=== PATIENT | female | born 1980 | race Caucasian/White ===

== ENCOUNTER 2019-01-22 20:43 | Emergency (ER) | payer OTHER ==
[2019-01-22] MEDS ORDERED: MOTRIN 400 MG ONE (21:11)
[2019-01-22] MEDS ORDERED: MOTRIN 400 MG PO ONE (21:12)
--- NOTE | 2019-01-22 21:31 | ERPHSYRPT ---
- History of Present Illness Time Seen by Provider: 01/22/19 21:10 Source: patient Exam Limitations: no limitations Patient Subjective Stated Complaint: pt states she has been coughing, dizzy, sore throat headache, and chilling at home since yesterday. states daughter had pos flu swab last week Triage Nursing Assessment: pt alert and oriented, answers questions approp. pt ambulatory with steady gait noted. respirations nonlabored with lungs cta. occasional dry cough noted. skin pink warm and dry Physician History: 38 y/o white female presents with one day h/o cough, sore throat and fever. pt was exposed to her daughter's illness and she was influenza A positive. pt denies n/v/d. pt denies abd pain. Timing/Duration: day(s) (1) Severity: mild Associated Symptoms: cough, fever, No nausea, No vomiting, No abdominal pain, No shortness of breath Allergies/Adverse Reactions: No Known Drug Allergies Allergy (Verified 01/22/19 21:07) Hx Tetanus, Diphtheria Vaccination/Date Given: No Hx Influenza Vaccination/Date Given: No Hx Pneumococcal Vaccination/Date Given: No Immunizations Up to Date: No - Review of Systems Constitutional: Fever Eyes: No Symptoms Ears, Nose, & Throat: No Symptoms Respiratory: Cough Cardiac: No Symptoms Abdominal/Gastrointestinal: No Symptoms Genitourinary Symptoms: No Symptoms Musculoskeletal: No Symptoms Skin: No Symptoms Neurological: No Symptoms Psychological: No Symptoms Endocrine: No Symptoms Hematologic/Lymphatic: No Symptoms Immunological/Allergic: No Symptoms All Other Systems: Reviewed and Negative - Past Medical History Pertinent Past Medical History: No Neurological History: No Pertinent History ENT History: No Pertinent History Cardiac History: No Pertinent History Respiratory History: No Pertinent History Endocrine Medical History: No Pertinent History Musculoskeletal History: No Pertinent History GI Medical History: No Pertinent History History: No Pertinent History Psycho-Social History: No Pertinent History Female Reproductive Disorders: No Pertinent History - Past Surgical History Past Surgical History: No Neuro Surgical History: No Pertinent History Cardiac: No Pertinent History Respiratory: No Pertinent History Gastrointestinal: No Pertinent History Genitourinary: No Pertinent History Musculoskeletal: No Pertinent History Female Surgical History: No Pertinent History - Social History Smoking Status: Never smoker Exposure to second hand smoke: No Drug Use: none Patient Lives Alone: No - Female History Hx Last Menstrual Period: today Hx Now: No - Nursing Vital Signs Nursing Vital Signs: Initial Vital Signs Temperature 100.3 F 01/22/19 20:58 Pulse Rate 101 H 01/22/19 20:58 Respiratory Rate 18 01/22/19 20:58 Blood Pressure 144/90 01/22/19 20:58 O2 Sat by Pulse Oximetry 99 01/22/19 20:58 Pain Scale Pain Intensity 6 - Physical Exam General Appearance: no apparent distress, alert, anxiety Eye Exam: PERRL/EOMI, photophobia Ears, Nose, Throat Exam: moist mucous membranes, pharyngeal erythema (mild) Neck Exam: normal inspection, non-tender, supple, full range of motion Respiratory Exam: normal breath sounds, lungs clear, airway intact, No chest tenderness, No respiratory distress Cardiovascular Exam: regular rate/rhythm, normal heart sounds, normal peripheral pulses Gastrointestinal/Abdomen Exam: soft, normal bowel sounds, No tenderness Pelvic Exam: not done Rectal Exam: not done Back Exam: normal inspection, normal range of motion, No CVA tenderness, No vertebral tenderness Extremity Exam: normal inspection, normal range of motion, pelvis stable Neurologic Exam: alert, oriented x 3, cooperative, undraped artist model II-XII nml as tested Skin Exam: normal color, warm, dry Lymphatic Exam: No adenopathy SpO2 Interpretation: normal SpO2: 99 O2 Delivery: Room Air - Course Nursing assessment & vital signs reviewed: Yes Ordered Tests: Medication Summary Discontinued Medications Generic Name Dose Route Start Last Admin Trade Name Dankq PRN Reason Stop Dose Admin Hydrocodone Bitart/Acetaminophen 10 ml 01/22/19 22:04 Hydrocodone-Acetamin 2.5-108/5 Ml Solution PO 01/22/19 22:05 STAT STA Amoxicillin 500 mg 01/22/19 22:04 Amoxil 500 Mg PO 01/22/19 22:05 STAT ONE Ibuprofen 400 mg 01/22/19 21:12 01/22/19 21:23 Motrin 400 Mg PO 01/22/19 21:13 400 mg STAT ONE Administration Ibuprofen Confirm 01/22/19 21:11 Motrin 400 Mg Administered 01/22/19 21:12 Dose 400 mg .ROUTE .STK-MED ONE Lab/Rad Data: Laboratory Results 01/22/19 Range/Units Unknown Influenza Type A Ag NEGATIVE (NEGATIVE) Influenza Type B Ag NEGATIVE (NEGATIVE) RSV (PCR) NEGATIVE (Negative) - Progress Progress: unchanged Counseled pt/family regarding: lab results, diagnosis, need for follow-up - Departure Time of Disposition: 22:06 Departure Disposition: Home Clinical Impression: Fever, Pharyngitis Condition: Stable Critical Care Time: No Referrals: MARELY AQUINO [Primary Care Provider] - Additional Instructions: drink plenty of fluids. add ibuprofen or alleve for pain and fever. follow up with primary doctor for persistent symptoms Prescriptions: Amoxicillin 500 mg Cap [Amoxil 500 mg] 500 mg PO TID #21 capsule Hydrocodone Bit/Acetaminophen [Hydrocodone-Acetaminophen Soln] 10 ml PO Q6H # 120 ml
[2019-01-22 22:03] LABS: INFLUENZA A NEGATIVE (NEGATIVE); INFLUENZA B NEGATIVE (NEGATIVE); RESPIRATORY SYNCTIAL VIRUS NEGATIVE (Negative)
[2019-01-22] MEDS ORDERED: HYDROCODONE-ACETAMIN 2.5-108/5 ML SOLUTION PO STA (22:04)
[2019-01-22] MEDS ORDERED: AMOXIL 500 MG PO ONE (22:04)
[2019-01-22] MEDS ORDERED: AMOXIL 500 MG ONE (22:07)
[2019-01-22] MEDS ORDERED: HYDROCODONE-ACETAMIN 2.5-108/5 ML SOLUTION ONE (22:07)
[2019-01-22 22:39] VITALS: BP 122/78; PULSE 104; O2SAT 97
== END 2019-01-22 22:35 | disposition home or self-care (01) ==
LOC: ED 20:43
DX: R50.9 Fever, unspecified (principal); Z20.89 Contact with and (suspected) exposure to other communicable diseases
CPT/HCPCS: 87631; 99283; A9270-GY

== ENCOUNTER 2021-07-10 20:22 | Emergency (ER) | payer OTHER ==
[2021-07-10 21:10] VITALS: O2SAT 96
--- NOTE | 2021-07-10 21:25 | ERPHSYRPT ---
- History of Present Illness Time Seen by Provider: 07/10/21 21:20 Source: patient, family Exam Limitations: no limitations Patient Subjective Stated Complaint: pt states she has been having symptoms for 1 week and tested positive for covid on monday. states she has been increasingly tired and feels bad and has body aches and pains. denies shortness of breath. Triage Nursing Assessment: pt alert and oriented, answers questions approp. pt ambulatory with steady gait noted. skin warm and dry. occasional cough noted. lungs cta. Physician History: pt is known Covid for 5 days and as precaution got Z pack and dosepak which are about done. She just feels tired. her pulse Ox is 96% room air, chest is clear. Abd nontender. No N/V. Fundi benign. Throat clear. legs nontender neg homans, and no edema , or swelling or erythema. Neuro is normal on exam. Discussed potential risks such as DVT and further testing , and pt prefers just CXR and to f/u DrKerline without further testing in ER at this time if lungs are OK by CXR. she has the capacity to make this choice. Timing/Duration: day(s) Cough Quality/Degree: dry cough Possible Cause: no prior episodes Modifying Factors: Improves With: nothing, coughing Associated Symptoms: cough, headache, muscle aches, sore throat Allergies/Adverse Reactions: No Known Drug Allergies Allergy (Verified 07/10/21 21:10) Home Medications: Aspirin EC 81 mg [Ecotrin 81 mg] 81 mg PO DAILY 07/10/21 [History] Azithromycin 250 mg [Zithromax 250 MG TABLET] 250 mg PO DAILY 07/10/21 [History] Benzonatate 200 mg PO Q8H PRN PRN 07/10/21 [History] Methylprednisolone 4 mg [Medrol 4 mg] 4 mg PO UD 07/10/21 [History] Hx Tetanus, Diphtheria Vaccination/Date Given: No Hx Influenza Vaccination/Date Given: No Hx Pneumococcal Vaccination/Date Given: No Immunizations Up to Date: No Travel Risk - International Travel Have you traveled outside of the country in past 3 weeks: No - Coronavirus Screening Are you exhibiting any of the following symptoms?: Yes Symptoms: Fever, Cough: New Onset, Headaches/Body Aches/Fatigue Close contact with a COVID-19 positive Pt in past 14-21 Days: Yes - Vaccine Status Have you recieved a Covid-19 vaccination: No - Review of Systems Constitutional: No Fever, No Chills Eyes: No Symptoms Ears, Nose, & Throat: No Symptoms Respiratory: Cough, No Dyspnea Cardiac: No Chest Pain, No Edema, No Syncope Abdominal/Gastrointestinal: No Abdominal Pain, No Nausea, No Vomiting, No Diarrhea Genitourinary Symptoms: No Dysuria Musculoskeletal: Myalgias, No Back Pain, No Neck Pain Skin: No Rash Neurological: Headache, No Dizziness, No Focal Weakness, No Sensory Changes Psychological: No Symptoms Endocrine: No Symptoms Hematologic/Lymphatic: No Symptoms Immunological/Allergic: No Symptoms All Other Systems: Reviewed and Negative - Past Medical History Pertinent Past Medical History: Yes Neurological History: No Pertinent History ENT History: No Pertinent History Cardiac History: No Pertinent History Respiratory History: Asthma Endocrine Medical History: No Pertinent History Musculoskeletal History: No Pertinent History GI Medical History: No Pertinent History History: No Pertinent History Psycho-Social History: No Pertinent History Female Reproductive Disorders: No Pertinent History - Past Surgical History Past Surgical History: No Neuro Surgical History: No Pertinent History Cardiac: No Pertinent History Respiratory: No Pertinent History Gastrointestinal: No Pertinent History Genitourinary: No Pertinent History Musculoskeletal: No Pertinent History Female Surgical History: No Pertinent History - Social History Smoking Status: Never smoker Exposure to second hand smoke: No Drug Use: none Patient Lives Alone: No - Female History Hx Last Menstrual Period: 06/25/21 Hx Now: No - Nursing Vital Signs Nursing Vital Signs: Initial Vital Signs Temperature 98.5 F 07/10/21 20:53 Pulse Rate 108 H 07/10/21 20:53 Respiratory Rate 16 07/10/21 20:53 Blood Pressure 143/91 07/10/21 20:53 O2 Sat by Pulse Oximetry 96 07/10/21 20:53 Pain Scale Pain Intensity 3 - Physical Exam General Appearance: no apparent distress, alert Eye Exam: PERRL/EOMI, eyes nml inspection Ears, Nose, Throat Exam: normal ENT inspection, TMs normal, pharynx normal, moist mucous membranes Neck Exam: normal inspection, non-tender, supple, full range of motion Respiratory Exam: normal breath sounds, lungs clear, No respiratory distress Cardiovascular Exam: regular rate/rhythm, normal heart sounds Gastrointestinal/Abdomen Exam: soft, No tenderness Pelvic Exam: deferred Rectal Exam: deferred Back Exam: normal inspection, No CVA tenderness, No vertebral tenderness Extremity Exam: normal inspection, normal range of motion Neurologic Exam: alert, oriented x 3, cooperative, normal mood/affect, sensation nml, No motor deficits Skin Exam: normal color, warm, dry, No rash Lymphatic Exam: No adenopathy SpO2 Interpretation: normal SpO2: 96 O2 Delivery: Room Air - Course Nursing assessment & vital signs reviewed: Yes - Radiology Exams Chest X-ray Interpretation: Reviewed by me, Infiltrates (scattered mild infiltrates consistent wtih Covid) Ordered Tests: Active Orders 24 hr Category Date Time Status CHEST 2 VIEWS (PA AND LAT) Stat Exams 07/10/21 21:28 Taken CBC W DIFF Stat Lab 07/10/21 21:58 Received CMP Stat Lab 07/10/21 21:58 Completed HCG QUALITATIVE,SERUM Stat Lab 07/10/21 21:58 Received Lactic Acid Stat Lab 07/10/21 21:48 Completed Manual Differential NC Stat Lab 07/10/21 21:58 Completed Lab/Rad Data: Laboratory Result Diagrams 07/10/21 21:58 07/10/21 21:58 Laboratory Results 07/10/21 07/10/21 07/10/21 Range/Units 21:58 21:58 21:58 WBC 5.7 (4.0-10.5) K/mm3 RBC 5.16 (4.1-5.4) M/mm3 Hgb 14.2 (12.0-16.0) gm/dl Hct 44.7 (35-47) % MCV 86.6 (78-100) fl MCH 27.5 (26-32) pg MCHC 31.8 L (32-36) g/dl RDW 16.3 H (11.5-14.0) % Plt Count 137 L (150-450) K/mm3 MPV 11.2 H (7.5-11.0) fl Sodium 136 L (137-145) mmol/L Potassium 3.4 L (3.5-5.1) mmol/L Chloride 97 L (98-107) mmol/L Carbon Dioxide 29 (22-30) mmol/L Anion Gap 13.5 (5-15) MEQ/L BUN 14 (7-17) mg/dL Creatinine 0.80 (0.52-1.04) mg/dL Estimated GFR > 60.0 ML/MIN Glucose 116 H (74-106) mg/dL Lactic Acid (0.4-2.0) Calcium 9.2 (8.4-10.2) mg/dL Total Bilirubin 0.60 (0.2-1.3) mg/dL AST 39 H (14-36) U/L ALT 57 H (0-35) U/L Alkaline Phosphatase 48 (38-126) U/L Serum Total Protein 7.8 (6.3-8.2) g/dL Albumin 4.3 (3.5-5.0) g/dL Serum , Qual NEGATIVE (Negative) 07/10/21 Range/Units 21:48 WBC (4.0-10.5) K/mm3 RBC (4.1-5.4) M/mm3 Hgb (12.0-16.0) gm/dl Hct (35-47) % MCV (78-100) fl MCH (26-32) pg MCHC (32-36) g/dl RDW (11.5-14.0) % Plt Count (150-450) K/mm3 MPV (7.5-11.0) fl Sodium (137-145) mmol/L Potassium (3.5-5.1) mmol/L Chloride (98-107) mmol/L Carbon Dioxide (22-30) mmol/L Anion Gap (5-15) MEQ/L BUN (7-17) mg/dL Creatinine (0.52-1.04) mg/dL Estimated GFR ML/MIN Glucose (74-106) mg/dL Lactic Acid 0.9 (0.4-2.0) Calcium (8.4-10.2) mg/dL Total Bilirubin (0.2-1.3) mg/dL AST (14-36) U/L ALT (0-35) U/L Alkaline Phosphatase (38-126) U/L Serum Total Protein (6.3-8.2) g/dL Albumin (3.5-5.0) g/dL Serum , Qual (Negative) - Progress Progress: improved, re-examined Air Movement: good Progress Note: 07/10/21 22:50 discussed with pt the potential complications from Covid including blood cots and that additional pathology could still be evolving undetected. She prefers outpt f/u to further w/u in ER or admission at this time after discussion of risk and benefit and will try decadron and outpt management with f/u PMD early this week and has the capacity to make this choice. She will return meantime if any shortness of breath or other concerns. Blood Culture(s) Obtained: No Antibiotics given: No Counseled pt/family regarding: lab results, diagnosis, need for follow-up, rad results - Departure Departure Disposition: Home Clinical Impression: covid with infiltrates, Elevated liver enzymes Condition: Good Critical Care Time: No Referrals: MARELY AQUINO [Primary Care Provider] - Instructions: Coronavirus Disease 2019 (COVID-19) (DC) Additional Instructions: followup with your early this week, return meantime if short of breath or any other concerns. your liver tests are slightly elevated and should be retested to confirm resolving after covid, or meantime if other symptoms occur. your chest x-ray could be rechecked if you become short of breath and other testing for blood clots might be indicated if your have leg swelling, redness , or are short of breath. Prescriptions: Dexamethasone 4 mg [Decadron 4 MG] 6 mg PO DAILY #10 tablet
[2021-07-10 22:15] LABS: ALBUMIN 4.3 g/dL (3.5-5.0); ALKALINE PHOSPHATASE 48 U/L (38-126); ANION GAP 13.5 MEQ/L (5-15); BLOOD UREA NITROGEN 14 mg/dL (7-17); CHLORIDE 97 mmol/L (98-107); Calcium 9.2 mg/dL (8.4-10.2); Carbon Dioxide 29 mmol/L (22-30); EST GLOMERULAR FILTRATION RATE > 60.0 ML/MIN; Glucose 116 mg/dL (74-106); Potassium 3.4 mmol/L (3.5-5.1); SGOT/AST 39 U/L (14-36); SGPT/ALT 57 U/L (0-35); SODIUM 136 mmol/L (137-145); Total Protein 7.8 g/dL (6.3-8.2)
[2021-07-10 22:24] LABS: Hematocrit 44.7 % (35-47); Hemoglobin 14.2 gm/dl (12.0-16.0); Mean Cell Volume 86.6 fl (78-100); Mean Corpuscular Hemoglobin 27.5 pg (26-32); Mean Corpuscular Hgb Concent. 31.8 g/dl (32-36); Mean Platelet Volume 11.2 fl (7.5-11.0); Platelet Count 137 K/mm3 (150-450); Red Blood Count 5.16 M/mm3 (4.1-5.4); Red Cell Distribution Width 16.3 % (11.5-14.0); White Blood Count 5.7 K/mm3 (4.0-10.5)
[2021-07-10 23:14] LABS: BAND 10 % (0.0-2.0); Lymphocytes 10 % (24-44); Monocyte 5 % (0.0-12.0); Neutrophils 75 % (36.0-66.0); Total Cells Counted 100
[2021-07-10 23:15] LABS: Platelet Estimate NORMAL (NORMAL)
[2021-07-10 23:25] VITALS: BP 124/91; PULSE 90
--- NOTE | 2021-07-11 07:02 | XRAY ---
Indication: Cough. Suspect Covid 19. Comparison: August 22, 2018. PA/lateral chest demonstrates new subtle patchy groundglass airspace disease bilaterally without consolidation/large effusion. Remaining heart and bony thorax unremarkable.
== END 2021-07-10 23:24 | disposition home or self-care (01) ==
LOC: ED 20:22
DX: R74.8 Abnormal levels of other serum enzymes (principal)
CPT/HCPCS: 36415; 71046; 80053; 81025; 83605; 85025; 99284

== ENCOUNTER 2024-05-29 21:19 | Emergency (ER) | payer OTHER ==
[2024-05-29] MEDS ORDERED: Sodium Chloride 0.9% 1000 ML 1,000 ML ONE (21:33)
[2024-05-29 21:37] VITALS: RESP 18; TEMP 98.2; O2SAT 98
--- NOTE | 2024-05-29 21:37 | ERPHSYRPT ---
- History of Present Illness Time Seen by Provider: 05/29/24 21:30 Historian: patient Exam Limitations: no limitations Physician History: 44-year-old female presents to the emergency department for evaluation of epigastric pain. Pain started today. Patient is mildly nauseous. No vomiting no diarrhea no rash. Symptoms are mild to moderate in intensity. No specific w orsening or improving factors. Patient reports she still has her gallbladder. Patient is otherwise healthy. She voices no other complaints or concerns at this time. Portions of this note were created with voice recognition technology. There may be grammatical, spelling, punctuation or sound alike errors Timing/Duration: today Activities at Onset: none Quality: aching Abdominal Pain Onset Location: epigastric Pain Radiation: no radiation Severity of Pain-Max: moderate Severity of Pain-Current: mild Associated Symptoms: denies symptoms Previous symptoms: no prior history Allergies/Adverse Reactions: No Known Drug Allergies Allergy (Verified 05/29/24 21:25) Home Medications: Aspirin EC 81 mg [Ecotrin 81 mg] 81 mg PO DAILY 07/10/21 [History] Azithromycin 250 mg [Zithromax 250 MG TABLET] 250 mg PO DAILY 07/10/21 [History] Benzonatate 200 mg PO Q8H PRN PRN 07/10/21 [History] Methylprednisolone 4 mg [Medrol 4 mg] 4 mg PO UD 07/10/21 [History] Hx Tetanus, Diphtheria Vaccination/Date Given: No Hx Influenza Vaccination/Date Given: No Hx Pneumococcal Vaccination/Date Given: No - Review of Systems Constitutional: No Symptoms, No Fever, No Chills Eyes: No Symptoms Ears, Nose, & Throat: No Symptoms Respiratory: No Symptoms, No Cough, No Dyspnea Cardiac: No Symptoms, No Chest Pain, No Edema, No Syncope Abdominal/Gastrointestinal: No Symptoms, No Abdominal Pain, No Nausea, No Vomiting, No Diarrhea Genitourinary Symptoms: No Symptoms, No Dysuria Musculoskeletal: No Symptoms, No Back Pain, No Neck Pain Skin: No Symptoms, No Rash Neurological: No Symptoms, No Dizziness, No Focal Weakness, No Sensory Changes Psychological: No Symptoms Endocrine: No Symptoms Hematologic/Lymphatic: No Symptoms Immunological/Allergic: No Symptoms All Other Systems: Reviewed and Negative - Past Medical History Pertinent Past Medical History: Yes Neurological History: No Pertinent History ENT History: No Pertinent History Cardiac History: No Pertinent History Respiratory History: Asthma Endocrine Medical History: No Pertinent History Musculoskeletal History: No Pertinent History GI Medical History: No Pertinent History History: No Pertinent History Psycho-Social History: No Pertinent History Female Reproductive Disorders: No Pertinent History - Past Surgical History Past Surgical History: No Neuro Surgical History: No Pertinent History Cardiac: No Pertinent History Respiratory: No Pertinent History Gastrointestinal: No Pertinent History Genitourinary: No Pertinent History Musculoskeletal: No Pertinent History Female Surgical History: No Pertinent History - Social History Smoking Status: Never smoker Exposure to second hand smoke: No Drug Use: none Patient Lives Alone: No - Nursing Vital Signs Nursing Vital Signs: Initial Vital Signs Blood Pressure 171/93 05/29/24 21:28 O2 Sat by Pulse Oximetry 98 05/29/24 21:28 Pain Scale Pain Intensity 8 - Physical Exam General Appearance: no apparent distress, alert Eye Exam: PERRL/EOMI, eyes nml inspection Ears, Nose, Throat Exam: normal ENT inspection, pharynx normal, moist mucous membranes Neck Exam: normal inspection, non-tender, supple, full range of motion Respiratory Exam: normal breath sounds, lungs clear, airway intact, No respiratory distress Cardiovascular Exam: regular rate/rhythm, normal heart sounds Gastrointestinal/Abdomen Exam: soft, No tenderness, No mass Back Exam: normal inspection, normal range of motion, No CVA tenderness, No vertebral tenderness Extremity Exam: normal inspection, normal range of motion, pelvis stable Neurologic Exam: alert, oriented x 3, cooperative, normal mood/affect, nml cerebellar function, sensation nml, No motor deficits Skin Exam: normal color, warm, dry Lymphatic Exam: No adenopathy SpO2 Interpretation: normal SpO2: 98 O2 Delivery: Room Air - Course Nursing assessment & vital signs reviewed: Yes - CT Exams Abdomen/Pelvis CT Interpretation: Tele-radiologist Report (No comps. Stomach distended with food. Abnormal distended gallbladder with wall thickening but no gallstones. Rule out a calculus cholecystitis. Normal appendectomy 4 cm right ovary cyst without free fluid) Ordered Tests: Active Orders 24 hr Category Date Time Status IV Insertion STAT Care 05/29/24 21:29 Active ABDOMEN AND PELVIS W/0 CONTRAS [CT] Stat Exams 05/29/24 21:30 Taken CBC W DIFF Stat Lab 05/29/24 21:30 Completed CMP Stat Lab 05/29/24 21:30 Completed CULTURE,URINE Stat Lab 05/29/24 21:31 Received LIPASE Stat Lab 05/29/24 21:30 Completed TROPONIN Q4H Lab 05/29/24 21:30 Completed TROPONIN Q4H Lab 05/30/24 01:30 Ordered TROPONIN Q4H Lab 05/30/24 05:30 Ordered UA W/RFX UR CULTURE Stat Lab 05/29/24 21:31 Completed Medication Summary Discontinued Medications Generic Name Dose Route Start Last Admin Trade Name Manish PRN Reason Stop Dose Admin Sodium Chloride 1,000 mls @ 999 mls/hr 05/29/24 21:29 05/29/24 21:38 Sodium Chloride 0.9% 1000 Ml IV 05/29/24 22:29 999 mls/hr .Q1H1M STA Administration Sodium Chloride Confirm 05/29/24 21:33 Sodium Chloride 0.9% 1000 Ml Administered 05/29/24 21:34 Dose 1,000 mls @ ud .ROUTE .STK-MED ONE Ceftriaxone Sodium 1 gm in 100 mls @ 200 mls/hr 05/29/24 22:27 05/29/24 22:37 Rocephin 1 Gm / 100 Ml Nacl IV 05/29/24 22:56 200 mls/hr STAT ONE 200 mls/hr Administration Ceftriaxone Sodium Confirm 05/29/24 22:29 Rocephin 1 Gm / 100 Ml Nacl Administered 05/29/24 22:30 Dose 1 gm in 100 mls @ ud IV .STK-MED ONE Lab/Rad Data: Laboratory Result Diagrams 05/29/24 21:30 05/29/24 21:30 Laboratory Results 05/29/24 05/29/24 05/29/24 Range/Units 21:31 21:30 21:30 WBC (3.98-10.04) x10^3/uL RBC (3.93-5.22) x10^6/uL Hgb (11.2-15.7) g/dL Hct (34.1-44.9) % MCV (79.4-94.8) fL MCH (25.6-32.2) pg MCHC (32.2-35.5) g/dL RDW (11.7-14.4) % Plt Count (182-369) x10^3/uL MPV (9.4-12.3) fL Gran % (34.0-71.1) % Immature Gran % (Auto) (0.001-0.429) % Nucleat RBC Rel Count (0.00-0.2) % Eos # (Auto) (0.04-0.36) x10^3/uL Immature Gran # (Auto) (0.001-0.031) x10^3u/L Absolute Lymphs (auto) (1.18-3.74) x10^3/uL Absolute Monos (auto) (0.24-0.86) x10^3/uL Absolute Nucleated RBC (0.00-0.012) x10^3u/L Lymphocytes % (19.3-51.7) % Monocytes % (4.7-12.5) % Eosinophils % (0.7-5.8) % Basophils % (0.1-1.2) % Absolute Granulocytes (1.56-6.13) x10^3/uL Basophils # (0.01-0.08) x10^3/uL Sodium 137 (135-145) mmol/L Potassium 3.8 (3.5-5.1) mmol/L Chloride 101 (98-107) mmol/L Carbon Dioxide 29 (22-30) mmol/L Anion Gap 10.7 (5-15) MEQ/L BUN 12 (7-17) mg/dL Creatinine 0.87 (0.52-1.04) mg/dL Estimated GFR 84.7 ML/MIN Glucose 107 H (74-106) mg/dL Calcium 9.7 (8.4-10.2) mg/dL Total Bilirubin 0.70 (0.2-1.3) mg/dL AST 23 (14-36) U/L ALT 21 (0-35) U/L Alkaline Phosphatase 59 (38-126) U/L Troponin I < 0.012 (0.000-0.033) ng/mL Serum Total Protein 7.0 (6.3-8.2) g/dL Albumin 4.0 (3.5-5.0) g/dL Lipase 172 (23-300) U/L Urine Color Red A (Yellow) Urine Appearance Turbid A (Clear) Urine pH 5.0 (4.6-8.0) Ur Specific [place] 1.025 (1.005-1.030) Urine Protein 100 A (Negative) Urine Glucose (UA) Negative (Negative) mg/dL Urine Ketones Negative (Negative) Urine Blood Large A (Negative) Urine Nitrite Positive A (Negative) Urine Bilirubin Small A (Negative) Urine Urobilinogen 0.2 (0.2) mg/dL Ur Leukocyte Esterase Moderate A (Negative) U Hyaline Cast (Auto) NONE SEEN (0-2) /LPF Urine Microscopic RBC >100 A (0-5) /HPF Urine Microscopic WBC 11-20 A (0-5) /HPF Ur Epithelial Cells None Seen (None Seen) /HPF Urine Bacteria None Seen (None Seen) /HPF Urine Culture Reflexed YES (NO) 05/29/24 Range/Units 21:30 WBC 8.7 (3.98-10.04) x10^3/uL RBC 4.22 (3.93-5.22) x10^6/uL Hgb 10.3 L (11.2-15.7) g/dL Hct 33.0 L (34.1-44.9) % MCV 78.2 L (79.4-94.8) fL MCH 24.4 L (25.6-32.2) pg MCHC 31.2 L (32.2-35.5) g/dL RDW 15.2 H (11.7-14.4) % Plt Count 241 (182-369) x10^3/uL MPV 11.2 (9.4-12.3) fL Gran % 66.3 (34.0-71.1) % Immature Gran % (Auto) 0.6 H (0.001-0.429) % Nucleat RBC Rel Count 0.0 (0.00-0.2) % Eos # (Auto) 0.34 (0.04-0.36) x10^3/uL Immature Gran # (Auto) 0.05 H (0.001-0.031) x10^3u/L Absolute Lymphs (auto) 1.76 (1.18-3.74) x10^3/uL Absolute Monos (auto) 0.77 (0.24-0.86) x10^3/uL Absolute Nucleated RBC 0.00 (0.00-0.012) x10^3u/L Lymphocytes % 20.1 (19.3-51.7) % Monocytes % 8.8 (4.7-12.5) % Eosinophils % 3.9 (0.7-5.8) % Basophils % 0.3 (0.1-1.2) % Absolute Granulocytes 5.79 (1.56-6.13) x10^3/uL Basophils # 0.03 (0.01-0.08) x10^3/uL Sodium (135-145) mmol/L Potassium (3.5-5.1) mmol/L Chloride (98-107) mmol/L Carbon Dioxide (22-30) mmol/L Anion Gap (5-15) MEQ/L BUN (7-17) mg/dL Creatinine (0.52-1.04) mg/dL Estimated GFR ML/MIN Glucose (74-106) mg/dL Calcium (8.4-10.2) mg/dL Total Bilirubin (0.2-1.3) mg/dL AST (14-36) U/L ALT (0-35) U/L Alkaline Phosphatase (38-126) U/L Troponin I (0.000-0.033) ng/mL Serum Total Protein (6.3-8.2) g/dL Albumin (3.5-5.0) g/dL Lipase (23-300) U/L Urine Color (Yellow) Urine Appearance (Clear) Urine pH (4.6-8.0) Ur Specific [place] (1.005-1.030) Urine Protein (Negative) Urine Glucose (UA) (Negative) mg/dL Urine Ketones (Negative) Urine Blood (Negative) Urine Nitrite (Negative) Urine Bilirubin (Negative) Urine Urobilinogen (0.2) mg/dL Ur Leukocyte Esterase (Negative) U Hyaline Cast (Auto) (0-2) /LPF Urine Microscopic RBC (0-5) /HPF Urine Microscopic WBC (0-5) /HPF Ur Epithelial Cells (None Seen) /HPF Urine Bacteria (None Seen) /HPF Urine Culture Reflexed (NO) - Progress Progress Note: Case discussed with Dr. Zion Willard at 11:18 PM. We discussed the findings on the CT scan which includes gallbladder wall thickening distended gallbladder no stones rule out a calculus cholecystitis. We discussed the laboratory findings. He advised outpatient ultrasound and follow-up in his office. A prescription for an outpatient ultrasound was completed. Ultrasound to be done on 03 June. Patient aware that if symptoms worsens in the interim she is to return to our ED . 44-year-old female presents to our ED for evaluation of epigastric and right upper quadrant pain. Physical exam reveals some tenderness at this location. CT scan as above. In addition normal appendix and a right ovarian cyst measuring 4 cm. No pelvic free fluid. Laboratory workup otherwise unremarkable. UA significant for urinary tract infection. Antibiotic infused. A prescription for Keflex and Toradol forwarded to patient's pharmacy. Patient agrees to follow-up with her primary care doctor within 48 hours for reevaluation. She agrees to have her ultrasound done as per the prescription. Patient states she is ready for discharge she voices no other complaints or concerns at this time. Portions of this note were created with voice recognition technology. There may be grammatical, spelling, punctuation or sound alike errors Complexity problem addressed is moderate acute complicated. No critical care time. Complex of data reviewed and analyzed is extensive. Test ordered test reviewed results analyzed and correlated clinically with history and physical exam. Management discussed with general surgery Dr. Willard. Risk of complication and or risk of morbidity/mortality of patient management is moderate. A prescription for Keflex forwarded to patient's pharmacy. Vital stable. Time spent to discharge patient approximately 20 minutes. Plan of care established for shared decision making. No social determinants of health to deter follow-up Portions of this note were created with voice recognition technology. There may be grammatical, spelling, punctuation or sound alike errors 05/29/24 23:[address] Nikko Will see patient in: office Counseled pt/family regarding: lab results, diagnosis, need for follow-up, rad results - Departure Departure Disposition: Home Clinical Impression: Microcytic anemia, Urinary tract infection, Fever, Ovarian cyst, Distended gallbladder Condition: Stable Critical Care Time: No Referrals: MARELY AQUINO [Primary Care Provider] - Follow up/PCP as directed Additional Instructions: Discharge/Care Plan CINDIHOLLI LOCKHART was seen on 05/29/24 in the Emergency Room. The patient was counseled regarding Diagnosis,Lab results, Imaging studies, need for follow up and when to return to the Emergency Room. Prescriptions given: Discharge Note I have spoken with the patient and/or caregivers. I have explained the patient's condition, diagnosis and treatment plan based on the information available to me at this time. I have answered the patient's and/or caregiver's questions and addressed any concerns. The patient and/or caregivers have as good understanding of the patient's diagnosis, condition and treatment plan as can be expected at this point. The vital signs have been stable. The patient's condition is stable and appropriate for discharge from the emergency department. The patient will pursue further outpatient evaluation with the primary care physician or other designated or consulting physician as outlined in the disch arge instructions. The patient and/or caregivers are agreeable to this plan of care and follow-up instructions have been explained in detail. The patient and/or caregivers have received these instruction. The patient/and or caregivers are aware that any significant change in condition or worsening of symptoms should prompt an immediate return to this or the closest emergency department or call 911. Prescriptions: Cephalexin Mh 500 mg [Keflex 500 mg] 500 mg PO TID 7 Days #21 cap Ketorolac Trometh 10 mg Tab [TORAdol 10 MG TABLET] 10 mg PO TID 5 Days #15 tablet
[2024-05-29] MEDS: Sodium Chloride 0.9% 1000 ML 1,000 ML IV STA (21:38)
[2024-05-29 21:46] LABS: Absolute Neutrophil Ct (ANC) 5.79 x10^3/uL (1.56-6.13); BASOPHIL % 0.3 % (0.1-1.2); Basophil (Absolute #) 0.03 x10^3/uL (0.01-0.08); Eosinophil % 3.9 % (0.7-5.8); Eosinophil (Absolute #) 0.34 x10^3/uL (0.04-0.36); Hemoglobin 10.3 g/dL (11.2-15.7); IMMATURE GRAN # 0.05 x10^3u/L (0.001-0.031); IMMATURE GRAN % 0.6 % (0.001-0.429); Lymphocyte (Absolute #) 1.76 x10^3/uL (1.18-3.74); Lymphocytes % 20.1 % (19.3-51.7); Mean Cell Volume 78.2 fL (79.4-94.8); Mean Corpuscular Hemoglobin 24.4 pg (25.6-32.2); Mean Corpuscular Hgb Concent. 31.2 g/dL (32.2-35.5); Mean Platelet Volume 11.2 fL (9.4-12.3); Monocyte (Absolute #) 0.77 x10^3/uL (0.24-0.86); Monocytes % 8.8 % (4.7-12.5); Neutrophil % 66.3 % (34.0-71.1); Platelet Count 241 x10^3/uL (182-369); Red Blood Count 4.22 x10^6/uL (3.93-5.22); Red Cell Distribution Width 15.2 % (11.7-14.4); White Blood Count 8.7 x10^3/uL (3.98-10.04)
[2024-05-29 22:00] LABS: ANION GAP 10.7 MEQ/L (5-15); BILIRUBIN,TOTAL 0.7 mg/dL (0.2-1.3); Calcium 9.7 mg/dL (8.4-10.2); Creatinine 1 0.87 mg/dL (0.52-1.04); EST GLOMERULAR FILTRATION RATE 84.7 ML/MIN; Potassium 3.8 mmol/L (3.5-5.1)
[2024-05-29 22:02] LABS: ADD URINE CULTURE? YES (NO); Appearance Turbid (Clear); Bacteria None Seen /HPF (None Seen); Bilirubin Small (Negative); Blood Large (Negative); Epithelial Cells None Seen /HPF (None Seen); Glucose, Urine Negative (Negative); Hyaline Casts NONE SEEN /LPF (0-2); Ketones Negative (Negative); Leukocyte Esterase Moderate (Negative); Nitrite Positive (Negative); Protein,Urine Dip 100 (Negative); RBC >100 /HPF (0-5); Specific Gravity 1.025 (1.005-1.030); Urobilinogen 0.2 mg/dL (0.2)
[2024-05-29] MEDS ORDERED: ROCEPHIN 1 GM / 100 ML NaCl 1 GM/100 ML IVPB IV ONE (22:29)
[2024-05-29] MEDS: ROCEPHIN 1 GM / 100 ML NaCl 1 GM/100 ML IVPB IV ONE (22:37)
[2024-05-29] MEDS ORDERED: TORAdol 30 mg Injection ONE (23:26)
[2024-05-29] MEDS: TORAdol 30 mg Injection IM ONE (23:29)
[2024-05-29] MEDS ORDERED: NORCO 5/325 MG ONE (23:31)
[2024-05-29] MEDS: NORCO 5/325 MG PO ONE (23:31)
[2024-05-30 00:37] VITALS: BP 132/87; PULSE 75
--- NOTE | 2024-05-30 08:51 | XRAY ---
Indication: Pain. Multiple contiguous axial images obtained through the abdomen and pelvis without contrast. Comparison: None Lung bases clear. Heart not enlarged. Stomach is distended with food. Gallbladder abnormally distended with wall thickening. No gallstones or biliary distention. Noncontrasted stomach and bowel loops appear nonobstructed. Normal appendix. Both ovaries are prominent with cysts, largest on the right measuring 4 cm. No free fluid/air. Remaining liver, pancreas, spleen, adrenal glands, kidneys, ureters, bladder, uterus, and aorta are unremarkable for noncontrast exam. Osseous structures intact. Impression: 1. Abnormal distended gallbladder with wall thickening. Rule out acalculous cholecystitis. Gallbladder sonogram may yield further information. 2. Prominent bilateral ovaries with 4 cm dominant right ovary cyst. Pelvic sonogram may yield further information if clinically warranted.
== END 2024-05-29 23:45 | disposition home or self-care (01) ==
LOC: ED 21:19
DX: D50.9 Iron deficiency anemia, unspecified (principal); N39.0 Urinary tract infection, site not specified; R50.9 Fever, unspecified; N83.201 Unspecified ovarian cyst, right side; K82.8 Other specified diseases of gallbladder; R10.13 Epigastric pain; R11.0 Nausea; Z79.899 Other long term (current) drug therapy
CPT/HCPCS: 36000; 36415; 74176; 80053; 81001; 83690; 84484; 85025; 87086; 99284; J0696; J1885; A9270-GY

== ENCOUNTER 2025-01-26 17:41 | Emergency (ER) | payer OTHER ==
[2025-01-26 18:34] VITALS: TEMP 97.8
[2025-01-26 18:57] LABS: Appearance Cloudy (Clear); Bacteria None Seen /HPF (None Seen); Bilirubin Negative (Negative); Blood Large (Negative); Epithelial Cells Rare /HPF (None Seen); Glucose, Urine Negative (Negative); Ketones Trace (Negative); Leukocyte Esterase Trace (Negative); Nitrite Negative (Negative); Protein,Urine Dip 30 (Negative); RBC >100 /HPF (0-5); Specific Gravity 1.025 (1.005-1.030)
--- NOTE | 2025-01-26 19:30 | ERPHSYRPT ---
- History of Present Illness Historian: patient Exam Limitations: no limitations Patient Subjective Stated Complaint: C/O sudden onset of lower abdominal pain that began around 5pm today. Patient has a constant aching in her abdomen with intermittent sharp pain. Pain is a #6 during the constant, dull stage but increases to a #10 with the intermittent sharp pain. Triage Nursing Assessment: Patient ambulated back to ER. She is alert and oriented. No SOB. S/S of pain are present; grimacing and gaurding. MILNER WNL. Skin tone normal. Physician History: Patient was doing fine up until about 5 PM about 2 and half hours prior to arrival. She started getting some abdominal pain it was bilateral in the lower abdomen. It was intense and sharp. She says it doubled her over. It made her sweat and get nauseated. She said it was very intense pain. That let up after few minutes maybe 5 or 10 minutes then she had some chronic lower abdominal dis comfort that was much more tolerable. She had a couple more flares of this intense cramping pain both times it was bilateral and similar to the other episodes. She cannot think of anything that may have caused this to happen.She is currently on her menstrual period. She has not had any abdominal surgeries. She said that they were thinking about taking her uterus out because of her dysfunctional bleeding. She has not had any vaginal discharge or dysuria. She has had no fever chills or vomiting. She has had some nausea. She has not had any diarrhea.Patient has a history of ovarian cysts.This pain came on rather acutely. Allergies/Adverse Reactions: No Known Drug Allergies Allergy (Verified 01/26/25 18:31) Home Medications: Albuterol Sulfate [Proair Respiclick] 90 mcg IH UD 08/19/24 [History] Hx Tetanus, Diphtheria Vaccination/Date Given: Yes Hx Influenza Vaccination/Date Given: No Hx Pneumococcal Vaccination/Date Given: No Immunizations Up to Date: Yes Travel Risk - International Travel Have you traveled outside of the country in past 3 weeks: No - Emerging Infectious Disease Are you exhibiting symptoms associated with any current EIDs: Yes Symptoms: Abdominal Pain - Review of Systems Constitutional: No Symptoms Eyes: No Symptoms Ears, Nose, & Throat: No Symptoms Respiratory: No Symptoms Cardiac: No Symptoms Genitourinary Symptoms: No Symptoms Musculoskeletal: No Symptoms Skin: No Symptoms Neurological: No Symptoms All Other Systems: Reviewed and Negative - Past Medical History Pertinent Past Medical History: Yes Neurological History: No Pertinent History ENT History: No Pertinent History Cardiac History: No Pertinent History Respiratory History: Asthma Endocrine Medical History: Other Musculoskeletal History: No Pertinent History GI Medical History: GERD, Gallbladder Disease History: No Pertinent History Psycho-Social History: No Pertinent History Female Reproductive Disorders: No Pertinent History, Other Other Medical History: Hashimotos - Past Surgical History Past Surgical History: No Neuro Surgical History: No Pertinent History Cardiac: No Pertinent History Respiratory: No Pertinent History Gastrointestinal: No Pertinent History Genitourinary: No Pertinent History Musculoskeletal: No Pertinent History Female Surgical History: No Pertinent History Other Surgical History: Lump removed from right breast at 16 yo - Female History Hx Last Menstrual Period: Currently Hx Now: No - Social History Smoking Status: Never smoker Exposure to second hand smoke: No Drug Use: none - Social Determinants of Health Will the patient participate in the screening: Yes Do you worry about a steady place to live?: No Do you have any problems with any of the following?: No known problems In the past 12 months,have you had to go without utilities?: No Transportation Issues: No Has anyone in your support network made you feel unsafe?: No Have you or anyone in your house had to go w/o enough food: No - Nursing Vital Signs Nursing Vital Signs: Initial Vital Signs O2 Sat by Pulse Oximetry 99 01/26/25 18:29 Pain Scale Pain Intensity 4 - Physical Exam General Appearance: no apparent distress Respiratory Exam: normal breath sounds, lungs clear, No chest tenderness Cardiovascular Exam: regular rate/rhythm, normal heart sounds Gastrointestinal/Abdomen Exam: soft, normal bowel sounds, tenderness (Mild tenderness in the bilaterally in the lower abdomen.), No distention, No mass Pelvic Exam: not done Rectal Exam: deferred Back Exam: normal inspection Neurologic Exam: alert, oriented x 3, cooperative Skin Exam: normal color SpO2: 100 Ordered Tests: Active Orders 24 hr Category Date Time Status ABDOMEN AND PELVIS W CONTRAST [CT] Stat Exams 01/26/25 19:30 Completed CBC W DIFF Stat Lab 01/26/25 19:41 Completed CMP Stat Lab 01/26/25 19:41 Completed CULTURE,URINE Stat Lab 01/26/25 18:26 Received UA W/RFX UR CULTURE Stat Lab 01/26/25 18:26 Completed Lab/Rad Data: Laboratory Result Diagrams 01/26/25 19:41 01/26/25 19:41 Laboratory Results 01/26/25 01/26/25 01/26/25 Range/Units 19:41 19:41 18:26 WBC 10.4 H (3.98-10.04) x10^3/uL RBC 4.53 (3.93-5.22) x10^6/uL Hgb 10.0 L (11.2-15.7) g/dL Hct 33.1 L (34.1-44.9) % MCV 73.1 L (79.4-94.8) fL MCH 22.1 L (25.6-32.2) pg MCHC 30.2 L (32.2-35.5) g/dL RDW 17.2 H (11.7-14.4) % Plt Count 287 (182-369) x10^3/uL MPV 10.4 (9.4-12.3) fL Gran % 78.9 H (34.0-71.1) % Immature Gran % (Auto) 1.7 H (0.001-0.429) % Nucleat RBC Rel Count 0.0 (0.00-0.2) % Eos # (Auto) 0.15 (0.04-0.36) x10^3/uL Immature Gran # (Auto) 0.18 H (0.001-0.031) x10^3u/L Absolute Lymphs (auto) 1.21 (1.18-3.74) x10^3/uL Absolute Monos (auto) 0.62 (0.24-0.86) x10^3/uL Absolute Nucleated RBC 0.00 (0.00-0.012) x10^3u/L Lymphocytes % 11.7 L (19.3-51.7) % Monocytes % 6.0 (4.7-12.5) % Eosinophils % 1.4 (0.7-5.8) % Basophils % 0.3 (0.1-1.2) % Absolute Granulocytes 8.19 H (1.56-6.13) x10^3/uL Basophils # 0.03 (0.01-0.08) x10^3/uL Sodium 140 (135-145) mmol/L Potassium 3.5 (3.5-5.1) mmol/L Chloride 101 (98-107) mmol/L Carbon Dioxide 28 (22-30) mmol/L Anion Gap 14.1 (5-15) MEQ/L BUN 12 (7-17) mg/dL Creatinine 0.74 (0.52-1.04) mg/dL Estimated GFR 102.9 ML/MIN Glucose 120 H (74-106) mg/dL Calcium 8.9 (8.4-10.2) mg/dL Total Bilirubin 0.60 (0.2-1.3) mg/dL AST 23 (14-36) U/L ALT 19 (0-35) U/L Alkaline Phosphatase 62 (38-126) U/L Serum Total Protein 7.7 (6.3-8.2) g/dL Albumin 4.5 (3.5-5.0) g/dL Urine Color Dark Yellow A (Yellow) Urine Appearance Cloudy A (Clear) Urine pH 6.0 (4.6-8.0) Ur Specific [place] 1.025 (1.005-1.030) Urine Protein 30 (Negative) Urine Glucose (UA) Negative (Negative) mg/dL Urine Ketones Trace A (Negative) Urine Blood Large A (Negative) Urine Nitrite Negative (Negative) Urine Bilirubin Negative (Negative) Urine Urobilinogen 1.0 A (0.2) mg/dL Ur Leukocyte Esterase Trace A (Negative) U Hyaline Cast (Auto) 3-5 A (0-2) /LPF Urine Microscopic RBC >100 A (0-5) /HPF Urine Microscopic WBC 11-20 A (0-5) /HPF Ur Epithelial Cells Rare (None Seen) /HPF Urine Bacteria None Seen (None Seen) /HPF Urine Culture Reflexed YES (NO) - Progress Progress: improved Progress Note: Patient was stable throughout stay. She has not had any pain basically since she has been back in the room which has been about 4 hours now.OvarianHer lab work all look good. A CT of her abdomen and pelvis showed cyst and a hemorrhagic cyst on the left. There was a new enhancing lesion with which was mildly enhancing.She has not had a fever or any kind of infectious symptoms. Do not think that this is a infectious process.Her abdominal exam was benign.She denies any vaginal discharge. She is on her period right now.I spoke with Patient little bit more at length. She is in the middle of her period and she says it is very heavy they are always very heavy. She said that she is having large amount of clots. She also described her pain as feeling like contractions during labor. I am wondering if it did not have something to do with these heavy periods and clots. I do not think she has an infectious process going on I do not think she has a torsed ovary. She has been pain-free except for a few brief episodic contraction-like cramps.I wanted discharge to home with some Naprosyn and give her couple Lortabs to take home as well. 01/26/25 22:59 01/26/25 23:07 Medical Desision Making - Independent Historian Additional History obtained from: Spouse - Diagnostic Testing Diagnostic test were ordered, analyzed, and reviewed by me: Yes Radiological Interpretation: Teleradiologist Report - Risk of complications Minimal Risk: Minimal risk of morbidity - Departure Departure Disposition: Home Clinical Impression: Dysmenorrhea Condition: Stable Critical Care Time: No Referrals: MARELY AQUINO [Primary Care Provider] - Follow up/PCP as directed Instructions: Menstrual Cramps (DC)
[2025-01-26 19:43] LABS: Absolute Neutrophil Ct (ANC) 8.19 x10^3/uL (1.56-6.13); BASOPHIL % 0.3 % (0.1-1.2); Basophil (Absolute #) 0.03 x10^3/uL (0.01-0.08); Eosinophil % 1.4 % (0.7-5.8); Eosinophil (Absolute #) 0.15 x10^3/uL (0.04-0.36); Hematocrit 33.1 % (34.1-44.9); IMMATURE GRAN # 0.18 x10^3u/L (0.001-0.031); IMMATURE GRAN % 1.7 % (0.001-0.429); Lymphocyte (Absolute #) 1.21 x10^3/uL (1.18-3.74); Lymphocytes % 11.7 % (19.3-51.7); Mean Cell Volume 73.1 fL (79.4-94.8); Mean Corpuscular Hemoglobin 22.1 pg (25.6-32.2); Mean Corpuscular Hgb Concent. 30.2 g/dL (32.2-35.5); Mean Platelet Volume 10.4 fL (9.4-12.3); Monocyte (Absolute #) 0.62 x10^3/uL (0.24-0.86); Neutrophil % 78.9 % (34.0-71.1); Platelet Count 287 x10^3/uL (182-369); Red Blood Count 4.53 x10^6/uL (3.93-5.22); Red Cell Distribution Width 17.2 % (11.7-14.4); White Blood Count 10.4 x10^3/uL (3.98-10.04)
[2025-01-26 19:55] LABS: ALBUMIN 4.5 g/dL (3.5-5.0); ANION GAP 14.1 MEQ/L (5-15); BILIRUBIN,TOTAL 0.6 mg/dL (0.2-1.3); Calcium 8.9 mg/dL (8.4-10.2); Creatinine 1 0.74 mg/dL (0.52-1.04); EST GLOMERULAR FILTRATION RATE 102.9 ML/MIN; Potassium 3.5 mmol/L (3.5-5.1); Total Protein 7.7 g/dL (6.3-8.2)
--- NOTE | 2025-01-26 22:55 | XRAY ---
CLINICAL HISTORY: Bilateral lower abdominal pain COMPARISON: Prior dated 05/29/2024 TECHNIQUE: A CT scan of the abdomen and pelvis was performed with IV contrast. Bowel loops are opacified by prior administration of oral contrast. One of the following dose-reduction techniques was utilized for this exam. Automated exposure control, adjustment of the mA and/or kV according to patient size, and use of iterative reconstruction. FINDINGS: The liver is enlarged measuring 19.0 cm and shows diffuse fatty infiltration. It shows regular margins.No solid or cystic hepatic mass is identified. The portal vein, intrahepatic biliary radicals, and the bile ducts are normal. Gall bladder appears normal with wall thickness. No radio-opaque calculus or pericholecystic fluid was identified. The common bile duct appears normal. Pancreas appears normal. No peripancreatic fat stranding, pancreatic pseudocyst, or peripancreatic fluid collection. The spleen is at the upper normal limit measuring 12.7 cm. No mass is seen. Both adrenal glands are unremarkable. Both kidneys are normal in size, shape, and orientation. No calculi, cyst mass, or hydronephrosis was seen on either side. Bilateral extrarenal pelvis are noted. Both ureters and urinary bladder appear normal. Stomach and small bowel loops are unremarkable. The caecum and ileocecal junction appear normal. No signs of appendicitis. Mild circumferental edematous wall thickening of the whole of the colon is noted. No significant fat stranding is noted. No evidence of bowel obstruction. Bilateral bulky ovaries are noted with multiple follicles showing peripheral enhancement. The left ovary measures 8.8 x 5.1 cm with stable dimensions in comparison to the previous report. There is mildly enhancing component as well measuring 3.3 x 2.2 cm which was not evaluated in the prior non-contrast study. Largest cyst measures 3.9cm. The right ovary measures 5.9 x 3.2 cm with an internal hemorrhagic cyst measuring 2.9 x 2.6 cm. The uterus appears bulky. No pelvic sidewall lymphadenopathy. No evidence of significant enlargement of the mesenteric or retroperitoneal lymph nodes. Visualized thoracic and lumbar spine show moderate degenerative changes. No lytic or sclerotic lesions in visualized bones. Visualized lung bases are unremarkable. No pleural or pericardial effusion seen. IMPRESSION: 1. Bilateral bulky ovaries with grossly stable dimensions in comparison to the prior study. Multiple peripherally enhancing cysts and follicles are noted in both ovaries. However, there is mildly enhancing component identified in the left ovary which was not identified in the prior noncontrast study. A hemorrhagic cyst is also noted in the right ovary. Please evaluate clinically to rule out any infectious/inflammatory etiology like oophoritis/tuboovarian abscess or hyperstimulated ovaries. 2. Mild circumferental edematous wall thickening of the whole of the colon is noted. No significant fat stranding is noted. No evidence of bowel obstruction. Please evaluate clinically. 3. Hepatomegaly with diffuse hepatic steatosis. Electronically Signed by: Fran Aleman MD. (01/26/2025 22:50:38 EDT)
[2025-01-26] MEDS ORDERED: NORCO 5/325 MG ONE (23:21)
[2025-01-26] MEDS: NORCO 5/325 MG PO ONE (23:22)
[2025-01-26] MEDS: Naprosyn 500 MG PO ONE (23:32)
[2025-01-26 23:36] VITALS: BP 123/87; PULSE 95; RESP 21; O2SAT 97
== END 2025-01-26 23:40 | disposition home or self-care (01) ==
LOC: ED 17:41
DX: N94.6 Dysmenorrhea, unspecified (principal); R10.30 Lower abdominal pain, unspecified; Z79.899 Other long term (current) drug therapy
CPT/HCPCS: 36415; 74177; 80053; 81001; 85025; 87086; 99284; 99285; A9270-GY